=== PATIENT | female | born 2000 | race Caucasian/White ===

== ENCOUNTER 2019-11-21 07:46 | Day surgery (SDC) | payer BC, OTHER ==
[~2019-11-21] VITALS: Ht 154.9 cm; Wt 58.0 kg
[~2019-11-21 07:46] MED LIST: None per pt
[2019-11-21] MEDS ORDERED: LACTATED RINGERS 1,000 ML IV SCH (07:59)
[2019-11-21 08:25] VITALS: BP 123/78
[2019-11-21] MEDS ORDERED: MIDAZOLAM 1 MG/ML, 2ML ONE (08:56)
[2019-11-21] MEDS ORDERED: FENTANYL PF 250 MCG/5ML ONE (08:57)
[2019-11-21 09:01] LABS: HCG UR SG 1.004 (1.003-1.030)
[2019-11-21] MEDS ORDERED: LIDOCAINE-MPF 2%, 2ML ONE ×2 (09:14)
[2019-11-21] MEDS ORDERED: BUPIVACAINE/PF 0.5% ONE ×2 (09:22→11:22)
[2019-11-21] MEDS ORDERED: LIDOCAINE 1%, 20ML ONE (09:23)
[2019-11-21] MEDS ORDERED: ROCURONIUM 10MG/ML,5ML ONE (09:41)
[2019-11-21] MEDS ORDERED: ONDANSETRON 2MG/ML, 2ML ONE (10:09)
[2019-11-21] MEDS ORDERED: CEFAZOLIN 1,000 MG ONE ×2 (10:09→10:25)
[2019-11-21] MEDS ORDERED: PROPOFOL 10 MG/ML, 20ML ONE (10:09)
[2019-11-21] MEDS ORDERED: DEXAMETHASONE 4 MG/ML, 1ML ONE (10:18)
[2019-11-21] MEDS ORDERED: KETOROLAC 30 MG/1 ML ONE (10:22)
[2019-11-21] MEDS ORDERED: OXYcodone 5 MG/5 ML ORAL.SOL UDC PO PRN (11:00)
[2019-11-21] MEDS ORDERED: HYDROmorphone 2 MG/ML, 1ML IVPush PRN (11:00)
[2019-11-21] MEDS ORDERED: PROMETHAZINE 25 MG/ML, 1ML IV PRN (11:00)
[2019-11-21] MEDS ORDERED: ONDANSETRON 2MG/ML, 2ML IV PRN (11:00)
[2019-11-21] MEDS ORDERED: ACETAMINOPHEN 325 MG TABLET PO PRN (11:00)
[2019-11-21] MEDS ORDERED: FENTANYL PF 100 MCG/2ML IV PRN (11:00)
[2019-11-21] MEDS ORDERED: MEPERIDINE/PF 25MG/ML,1ML IVPush PRN (11:00)
== END 2019-11-21 13:35 | disposition home or self-care (01) ==
LOC: OUT 07:46 → EDSEX 13:15 → OUT 13:35
PROVIDERS: ATTEND Orthopaedic Surgery
DX: M24.672 Ankylosis, left ankle (principal); S93.422A Sprain of deltoid ligament of left ankle, initial encounter; S93.492A Sprain of other ligament of left ankle, initial encounter; M65.872 Other synovitis and tenosynovitis, left ankle and foot; X58.XXXA Exposure to other specified factors, initial encounter; Y93.66 Activity, soccer; Y92.89 Other specified places as the place of occurrence of the external cause; Y99.8 Other external cause status
CPT/HCPCS: 27695; 29898; 64445; 64447; 81025; J0690; J1100; J1885; J2250; J2405; J2704; J3010; J7120; C1713